=== PATIENT | female | born 1945 | race Caucasian/White ===

== ENCOUNTER 2018-04-30 16:53 | Emergency (ER) | payer OTHER ==
[~2018-04-30] VITALS: Ht 165.1 cm; Wt 102.0 kg
[2018-04-30] MEDS ORDERED: AMBIEN 5 MG TABL5 M1 PO (16:59)
[2018-04-30] MEDS ORDERED: MOBIC15 MG PO (16:59)
[2018-04-30] MEDS ORDERED: AMITRIPTYLINE H10 M3 PO (16:59)
[2018-04-30] MEDS ORDERED: LOPRESSOR50 PO (17:00)
[2018-04-30] MEDS ORDERED: SYNTHROID88 MCG PO (17:00)
[2018-04-30] MEDS ORDERED: AMARYL4 MG PO (17:00)
[2018-04-30] MEDS ORDERED: GLUCOPHAGE XR500 MG PO (17:00)
[2018-04-30] MEDS ORDERED: ASPIR 8181 MG PO (17:01)
[2018-04-30] MEDS ORDERED: ACTOS15 MG PO (17:01)
[2018-04-30] MEDS ORDERED: B12 (17:02)
[2018-04-30 17:53] LABS: ABSOLUTE EOSINOPHILS 0.4 thou/uL (0.0-0.7); ABSOLUTE LYMPHOCYTES 1.5 thou/uL (0.8-5.3); ABSOLUTE MONOCYTES 0.5 thou/uL (0.0-1.2); ABSOLUTE NEUTROPHILS 3.9 thou/uL (1.6-8.1); BASOPHILS 0.4 %; HEMATOCRIT 38.9 % (37.0-47.0); HEMOGLOBIN 12.6 gm/dL (12.0-15.0); LYMPHOCYTES 23.5 %; MCH 32.6 pg (26.0-34.0); MCHC 32.3 g/dL (28.0-37.0); MCV 100.8 fL (80.0-100.0); MONOCYTES 8.3 %; MPV 8.2 fl. (7.2-11.1); NUCLEATED RBCS 0 /100WBC; PLATELET COUNT* 220 thou/uL (150-400); POLYS 60.8 %; RBC 3.86 mil/uL (4.20-5.00); RDW-CV 13.6 % (10.5-14.5); WBC 6.4 thou/uL (4.0-11.0)
[2018-04-30 18:05] LABS: CALCIUM 9.2 mg/dL (8.5-10.1); CREATININE 1.6 mg/dL (0.6-1.3); POTASSIUM 4.4 mmol/L (3.5-5.1)
[2018-04-30 18:11] LABS: ALBUMIN 3.6 g/dL (3.4-5.0); TOTAL BILIRUBIN 0.3 mg/dL (<0.1-1.0); TOTAL PROTEIN 7.2 g/dL (6.4-8.2)
[2018-04-30 18:38] LABS: URINE BILIRUBIN NEGATIVE (Negative); URINE BLOOD NEGATIVE (Negative); URINE CLARITY CLEAR; URINE COLOR YELLOW; URINE GLUCOSE-RANDOM TRACE (Negative); URINE KETONES TRACE (Negative); URINE LEUKOCYTES-REFLEX NEGATIVE (Negative); URINE NITRITE-REFLEX NEGATIVE (Negative); URINE PROTEIN TRACE (Negative); URINE SPECIFIC GRAVITY >= 1.030 (1.005-1.030); URINE UROBILINOGEN 0.2 E.U./dl (0.2-1.0)
[2018-04-30 20:05] VITALS: BP 176/91
--- NOTE | 2018-05-01 16:29 | EKG ---
[place] [address] ELECTROCARDIOGRAM REPORT Name: SRAVAN CARABALLO Room: [facility]#: [id number] Admission: 04/30/18 Attend Phys: Discharge: 04/30/18 Date of : 47 Report #: [id number] THIS REPORT FOR: //name// [facility] ED Test Date: 2018-04-30 Test Time: 17:25:07 Pat Name: SRAVAN CARABALLO Department: Room: Gender: F Filter Operator: Khalif SAAB : 1945 Requested By: Susy Baxter Order Number: [id number] MD: Denis Montero Measurements Intervals [place] Rate: 81 P: 50 VA: 201 QRS: 28 QRSD: 110 T: 55 QT: 388 QTc: 451 Interpretive Statements Sinus rhythm Low voltage, precordial leads Abnormal R-wave progression, early transition No previous ECG available for comparison Electronically Signed On 05-01-2018 16:29:26 CDT by Denis Montero [email or web address] <ELECTRONICALLY SIGNED> By: Denis Montero MD, [facility] 05/01/18 1629 1725 24 Denis Montero MD, FACC /EPI
== END 2018-04-30 20:05 | disposition home or self-care (01) ==
LOC: M.ERS 16:53
PROVIDERS: Personal Emergency Response Attendant
DX: E11.649 Type 2 diabetes mellitus with hypoglycemia without coma (principal); R55 Syncope and collapse; E07.9 Disorder of thyroid, unspecified; I10 Essential (primary) hypertension

== ENCOUNTER → 2018-07-29 | Outpatient (CLI) | payer OTHER ==
[~2018-07-29] MED LIST: ACTOS15 MG PO; AMARYL4 MG PO; AMBIEN 5 MG TABL5 M1 PO; AMITRIPTYLINE H10 M3 PO; ASPIR 8181 MG PO; B12; GLUCOPHAGE XR500 MG PO; LOPRESSOR50 PO; MOBIC15 MG PO; SYNTHROID88 MCG PO
== END ==
LOC: M.RAD 10:41
DX: Z12.31 Encounter for screening mammogram for malignant neoplasm of breast (principal)

== ENCOUNTER → 2018-11-06 | Outpatient (CLI) | payer OTHER | LOC: M.ULTRA 13:15 | DX: N28.1 Cyst of kidney, acquired (principal); N17.0 Acute kidney failure with tubular necrosis ==

== ENCOUNTER → 2021-04-11 | Outpatient (CLI) | payer OTHER | LOC: M.RAD 12:57 | PROVIDERS: ATTEND Family Medicine | DX: Z12.31 Encounter for screening mammogram for malignant neoplasm of breast (principal); N64.89 Other specified disorders of breast ==